=== PATIENT | female | born 1950 | race Caucasian/White ===

== ENCOUNTER → 2023-12-19 | Emergency (ER) | payer BC ==
--- OUTSIDE RECORDS SUMMARY | 2023-12-19 06:47 | XMS REPORT | Continuity of Care Document ---
Author Name Unknown Address [address] [facility] [address] [place] [address] [facility]connect Address [address] [facility] [address] [place] [address] Care Team Providers Care Resident Athletic Trainer Name Role Phone Edgar Grider Attending Clinician Unavailab le Payers Payer Name Policy Type Policy Number Effective Date Expirati on Date Source Allergies, Adverse Reactions, Alerts Allergy Name Allergy Type Status Severity Reaction(s) Onset Date Inactive Date Treating Clinician Comments Source No Known Allergie s DA Active U 01-12 00:00: 00 [facility] Encounters Start Date/Time End Date/Time Encounter Type Admission Type Attending Clinicians Care Facility Care Department Encounter ID Source 2022-07-08 10:51:00 2022-07-08 10:52:00 Outpatient R Edgar Grider [facility] [id number] [facility] 2021-07-08 11:45:00 2021-07-08 11:45:00 Outpatient Edgar Grider [facility] [id number] [facility] 2020-04-28 13:30:00 2020-04-28 13:30:00 Outpatient Edgar Grider [facility] [id number] [facility] 2019-04-23 13:42:00 2019-04-23 13:43:00 Outpatient R MarniEdgar [facility] [id number] [facility] 2018-03-07 11:10:00 2018-03-07 11:11:00 Outpatient R Edgar Grider [facility] [id number] Critical access hospital Jj Latif Results Test Description Test Time Test Comments Results Result Co mments Source MAMMO Bilat Screen DDI+RAJNI * [facility] [place] KAM : 1950 Sex: F Pt Name: CHANPatriciaWM [address] Phys: [place] [address] : 1950 Age: 72 SEX:F [phone] Exam Date: 07/08/22 Status: REG CLI Acct: [id number] Loc: [facility] Pt Unit #: [id number] Report #: [id number] CC: Edgar Grider MD MAMMOGRAPHY REPORT Order # Category/Exam [id number] MMO/MAMMO Bilat Screen DDI+RAJNI ([id number]): . Results 2 Bilateral MAMMO Bilat Screen DDI+RAJNI. CLINICAL HISTORY: Patient is 72 years old and is seen for screening. The patient has no family history of breast cancer. The patient has no personal history of cancer. VIEWS: The views performed were: bilateral craniocaudal with tomosynthesis; bilateral mediolateral oblique with tomosynthesis; and left exaggerated craniocaudal with tomosynthesis. FILMS COMPARED: The present examination has been compared to prior imaging studies performed at [facility] on 03/07/2018, 04/23/2019, 04/28/2020 and 07/08/2021. This study has been interpreted with the assistance of computer-aided detection. MAMMOGRAM FINDINGS: There are scattered fibroglandular densities. There are vascular calcifications seen in the left breast. There are no suspicious masses, suspicious calcifications, or new areas of architectural distortion. IMPRESSION: THERE IS NO MAMMOGRAPHIC EVIDENCE OF MALIGNANCY. A ROUTINE FOLLOW-UP MAMMOGRAM IN 1 YEAR IS RECOMMENDED. THE RESULTS OF THIS EXAM WERE SENT TO THE PATIENT. ACR BI-RADS Category 2 - Benign finding MAMMOGRAPHY NOTE: 1. A negative mammogram report should not delay a biopsy if a dominant of clinically suspicious mass is present. 2. Approximately 10% to 15% of breast cancers are not detected by mammography. 3. Adenosis and dense breasts may obscure an underlying neoplasm. Reported by: MISSY MULLEN MD Electonically Signed: [id number] Reported By: Missy Mullen MD Electronically Signed Date/Time: 07/08/22 1249 Technologist: GREG Dictated Date/Time: 07/08/22 Transcribed Date/Time: 07/08/22 MAMMO Bilat Screen DDI+RAJNI * [facility] DENI KAMJANINA LOWRY : 1950 Sex: F Pt Name: JANICEDENI WALKERJANINA LOWRY [address] [facility]. Phys: [place] [address] : 1950 Age: 72 SEX:F [phone] Exam Date: 07/08/22 Status: REG CLI Acct: [id number] Loc: BICMAMMO Pt Unit #: [id number] Report #: [id number] CC: Edgar Grider MD MAMMOGRAPHY REPORT Order # Category/Exam [id number] MMO/MAMMO Bilat Screen DDI+RAJNI ([id number]): . Results 2 Bilateral MAMMO Bilat Screen DDI+RAJNI. CLINICAL HISTORY: Patient is 72 years old and is seen for screening. The patient has no family history of breast cancer. The patient has no personal history of cancer. VIEWS: The views performed were: bilateral craniocaudal with tomosynthesis; bilateral mediolateral oblique with tomosynthesis; and left exaggerated craniocaudal with tomosynthesis. FILMS COMPARED: The present examination has been compared to prior imaging studies performed at [facility] on 03/07/2018, 04/23/2019, 04/28/2020 and 07/08/2021. This study has been interpreted with the assistance of computer-aided detection. MAMMOGRAM FINDINGS: There are scattered fibroglandular densities. There are vascular calcifications seen in the left breast. There are no suspicious masses, suspicious calcifications, or new areas of architectural distortion. IMPRESSION: THERE IS NO MAMMOGRAPHIC EVIDENCE OF MALIGNANCY. A ROUTINE FOLLOW-UP MAMMOGRAM IN 1 YEAR IS RECOMMENDED. THE RESULTS OF THIS EXAM WERE SENT TO THE PATIENT. ACR BI-RADS Category 2 - Benign finding MAMMOGRAPHY NOTE: 1. A negative mammogram report should not delay a biopsy if a dominant of clinically suspicious mass is present. 2. Approximately 10% to 15% of breast cancers are not detected by mammography. 3. Adenosis and dense breasts may obscure an underlying neoplasm. Reported by: MISSY MULLEN MD Electonically Signed: [id number] Reported By: Missy Mullen MD Electronically Signed Date/Time: 07/08/22 1249 Technologist: GREG Dictated Date/Time: 07/08/22 Transcribed Date/Time: 07/08/22 DEXA BONE DENSITY STUDY * [facility] : 1950 Sex: F Pt Name: WM KAM [address] Phys: [place] [address] : 1950 Age: 72 SEX:F [phone] Exam Date: 07/08/22 Status: REG CLI Acct: [id number] Loc: [facility] Pt Unit #: [id number] Report #: [id number] CC: Edgar Grider MD BONE DENSITY REPORT Order # Category/Exam [id number] BD/DEXA BONE DENSITY STUDY ([id number]): . Results DEXA bone density examination 07/08/2022 HISTORY: 72-year-old postmenopausal female for screening COMPARISON: None available FINDINGS: Lumbar spine was not assessed secondary to presence of lumbar spine hardware. Left femoral neck--bone mineral density0.460; T score -3.5 Total proximal left femur--bone mineral density 0.643; T score -2.4 Right femoral neck--bone mineral density0.452; T score -3.6 Total proximal right femur--bone mineral density 0.652; T score -2.4 IMPRESSION: Bilateral femoral neck osteoporosis. This patient has a 10 year WHO fracture risk of a major osteoporotic fracture of 22-23% and of a hip fracture of 9.1-10%. Reported By: Jabari Cole MD Electronically Signed Date/Time: 07/08/22 1257 Technologist: GREG Dictated Date/Time: 07/08/22 1256 Transcribed Date/Time: MAMMO Bilat Screen DDI+RAJNI * [facility] : 1950 Sex: F Pt Name: WM KAM [address] Phys: [place] [address] : 1950 Age: 71 SEX:F [phone] Exam Date: 07/08/21 Status: REG CLI Acct: [id number] Loc: BICM[facility]MO Pt Unit #: [id number] Report #: [id number] CC: Edgar Grider MD MAMMOGRAPHY REPORT Order # Category/Exam [id number] MMO/MAMMO Bilat Screen DDI+RAJNI ([id number]): . Results 1 Bilateral MAMMO Bilat Screen DDI+RAJNI. CLINICAL HISTORY: Patient is 71 years old and is seen for screening. The patient has no family history of breast cancer. The patient has no personal history of cancer. VIEWS: The views performed were: bilateral craniocaudal with tomosynthesis and bilateral mediolateral oblique with tomosynthesis. FILMS COMPARED: The present examination has been compared to prior imaging studies performed at [facility] on 01/05/2017, 03/07/2018, 04/23/2019 and 04/28/2020. This study has been interpreted with the assistance of computer-aided detection. MAMMOGRAM FINDINGS: There are scattered fibroglandular densities. There are no suspicious masses, suspicious calcifications, or new areas of architectural distortion. IMPRESSION: THERE IS NO MAMMOGRAPHIC EVIDENCE OF MALIGNANCY. A ROUTINE FOLLOW-UP MAMMOGRAM IN 1 YEAR IS RECOMMENDED. THE RESULTS OF THIS EXAM WERE SENT TO THE PATIENT. ACR BI-RADS Category 1 - Negative MAMMOGRAPHY NOTE: 1. A negative mammogram report should not delay a biopsy if a dominant of clinically suspicious mass is present. 2. Approximately 10% to 15% of breast cancers are not detected by mammography. 3. Adenosis and dense breasts may obscure an underlying neoplasm. Reported by: DAVID WEAVER MD Electonically Signed: [id number] Reported By: David Weaver MD Electronically Signed Date/Time: 07/08/21 1259 Technologist: MIKAELA Dictated Date/Time: 07/08/21 Transcribed Date/Time: 07/08/21 MAMMO Bilat Screen DDI+RAJNI * [facility] : 1950 Sex: F Pt Name: WM KAM [address] Phys: [place] [address] : 1950 Age: 71 SEX:F [phone] Exam Date: 07/08/21 Status: REG CLI Acct: [id number] [facility]: [facility] Pt Unit #: [id number] Report #: [id number] CC: Edgar Grider MD MAMMOGRAPHY REPORT Order # Category/Exam [id number] MMO/MAMMO Bilat Screen DDI+RAJNI ([id number]): . Results 1 Bilateral MAMMO Bilat Screen DDI+RAJNI. CLINICAL HISTORY: Patient is 71 years old and is seen for screening. The patient has no family history of breast cancer. The patient has no personal history of cancer. VIEWS: The views performed were: bilateral craniocaudal with tomosynthesis and bilateral mediolateral oblique with tomosynthesis. FILMS COMPARED: The present examination has been compared to prior imaging studies performed at [facility] on 01/05/2017, 03/07/2018, 04/23/2019 and 04/28/2020. This study has been interpreted with the assistance of computer-aided detection. MAMMOGRAM FINDINGS: There are scattered fibroglandular densities. There are no suspicious masses, suspicious calcifications, or new areas of architectural distortion. IMPRESSION: THERE IS NO MAMMOGRAPHIC EVIDENCE OF MALIGNANCY. A ROUTINE FOLLOW-UP MAMMOGRAM IN 1 YEAR IS RECOMMENDED. THE RESULTS OF THIS EXAM WERE SENT TO THE PATIENT. ACR BI-RADS Category 1 - Negative MAMMOGRAPHY NOTE: 1. A negative mammogram report should not delay a biopsy if a dominant of clinically suspicious mass is present. 2. Approximately 10% to 15% of breast cancers are not detected by mammography. 3. Adenosis and dense breasts may obscure an underlying neoplasm. Reported by: DAVID WEAVER MD Electonically Signed: [id number] Reported By: David Weaver MD Electronically Signed Date/Time: 07/08/21 1259 Technologist: MIKAELA Dictated Date/Time: 07/08/21 Transcribed Date/Time: 07/08/21 MAMMO Bilat Screen DDI+RAJNI Pt Name: NEGINWM LOWRY [address] [place] [address]. Phys: [place] [address] : 1950 Age: 70 SEX:F [phone] Exam Date: 04/28/20 Status: REG CLI Acct: [id number] Loc: [facility] Pt Unit #: [id number] Report #: [id number] CC: Edgar Grider MD MAMMOGRAPHY REPORT Order # Category/Exam [id number] MMO/MAMMO Bilat Screen DDI+RAJNI ([id number]): . Results 2 Bilateral MAMMO Bilat Screen DDI+RAJNI. CLINICAL HISTORY: Patient is 70 years old and is seen for screening. The patient has no family history of breast cancer. The patient has no personal history of cancer. VIEWS: The views performed were: bilateral craniocaudal with tomosynthesis and bilateral mediolateral oblique with tomosynthesis. FILMS COMPARED: The present examination has been compared to prior imaging studies performed at [facility] on 08/18/2015, 01/05/2017, 03/07/2018 and 04/23/2019. This study has been interpreted with the assistance of computer-aided detection. MAMMOGRAM FINDINGS: There are scattered fibroglandular densities. There are stable benign appearing calcifications seen in both breasts. There are no suspicious masses, suspicious calcifications, or new areas of architectural distortion. IMPRESSION: THERE IS NO MAMMOGRAPHIC EVIDENCE OF MALIGNANCY. A ROUTINE FOLLOW-UP MAMMOGRAM IN 1 YEAR IS RECOMMENDED. THE RESULTS OF THIS EXAM WERE SENT TO THE PATIENT. ACR BI-RADS Category 2 - Benign finding MAMMOGRAPHY NOTE: 1. A negative mammogram report should not delay a biopsy if a dominant of clinically suspicious mass is present. 2. Approximately 10% to 15% of breast cancers are not detected by mammography. 3. Adenosis and dense breasts may obscure an underlying neoplasm. Reported by: DESTINEE ROBLERO MD Electonically Signed: [id number] Reported By: Prateek Roblero MD Electronically Signed Date/Time: 04/28/20 1416 Technologist: LIBIA Dictated Date/Time: 04/28/20 Transcribed Date/Time: 04/28/20 MAMMO Bilat Screen DDI+RAJNI Pt Name: WM KAM [address] [place] [address]. Phys: [place] [address] : 1950 Age: 70 SEX:F [phone] Exam Date: 04/28/20 Status: REG CLI Acct: [id number] Loc: [facility] Pt Unit #: [id number] Report #: [id number] CC: Edgar Grider MD MAMMOGRAPHY REPORT Order # Category/Exam [id number] MMO/MAMMO Bilat Screen DDI+RAJNI ([id number]): . Results 2 Bilateral MAMMO Bilat Screen DDI+RAJNI. CLINICAL HISTORY: Patient is 70 years old and is seen for screening. The patient has no family history of breast cancer. The patient has no personal history of cancer. VIEWS: The views performed were: bilateral craniocaudal with tomosynthesis and bilateral mediolateral oblique with tomosynthesis. FILMS COMPARED: The present examination has been compared to prior imaging studies performed at [facility] on 08/18/2015, 01/05/2017, 03/07/2018 and 04/23/2019. This study has been interpreted with the assistance of computer-aided detection. MAMMOGRAM FINDINGS: There are scattered fibroglandular densities. There are stable benign appearing calcifications seen in both breasts. There are no suspicious masses, suspicious calcifications, or new areas of architectural distortion. IMPRESSION: THERE IS NO MAMMOGRAPHIC EVIDENCE OF MALIGNANCY. A ROUTINE FOLLOW-UP MAMMOGRAM IN 1 YEAR IS RECOMMENDED. THE RESULTS OF THIS EXAM WERE SENT TO THE PATIENT. ACR BI-RADS Category 2 - Benign finding MAMMOGRAPHY NOTE: 1. A negative mammogram report should not delay a biopsy if a dominant of clinically suspicious mass is present. 2. Approximately 10% to 15% of breast cancers are not detected by mammography. 3. Adenosis and dense breasts may obscure an underlying neoplasm. Reported by: DESTINEE ROBLERO MD Electonically Signed: [id number] Reported By: Prateek Roblero MD Electronically Signed Date/Time: 04/28/20 1416 Technologist: LIBIA Dictated Date/Time: 04/28/20 Transcribed Date/Time: 04/28/20 MAMMO Bilat Screen DDI+RAJ[facility] Pt Name: WM KAM Phys: Edgar Grider MD , : 1950 Age: 69 SEX:F Exam Date: 04/23/19 Status: REG CLI Acct: [id number] Loc: [facility] Pt Unit #: [id number] Report #: [id number] CC: Edgar Grider MD MAMMOGRAPHY REPORT Order # Category/Exam [id number] MMO/MAMMO Bilat Screen DDI+RAJNI ([id number]): . Results Bilateral MAMMO Bilat Screen DDI+RAJNI. CLINICAL HISTORY: Patient is 69 years old and is seen for screening. The patient has no family history of breast cancer. The patient has no personal history of cancer. VIEWS: The views performed were: bilateral craniocaudal with tomosynthesis and bilateral mediolateral oblique with tomosynthesis. FILMS COMPARED: The present examination has been compared to prior imaging studies performed at [facility] on 08/01/2014, 08/18/2015, 01/05/2017 and 03/07/2018. MAMMOGRAM FINDINGS: There are scattered fibroglandular densities. There are no suspicious masses, suspicious calcifications, or new areas of architectural distortion. IMPRESSION: THERE IS NO MAMMOGRAPHIC EVIDENCE OF MALIGNANCY. A ROUTINE FOLLOW-UP MAMMOGRAM IN 1 YEAR IS RECOMMENDED. THE RESULTS OF THIS EXAM WERE SENT TO THE PATIENT. ACR BI-RADS Category 1 - Negative MAMMOGRAPHY NOTE: 1. A negative mammogram report should not delay a biopsy if a dominant of clinically suspicious mass is present. 2. Approximately 10% to 15% of breast cancers are not detected by mammography. 3. Adenosis and dense breasts may obscure an underlying neoplasm. Reported By: Han Valverde MD Electronically Signed Date/Time: 04/23/19 1512 Technologist: [email or web address] Dictated Date/Time: 04/23/19 Transcribed Date/Time: 04/23/19 MAMMO Bilat Screen DDI+RAJ[facility] Pt Name: WM KAM [address] [facility]. Phys: [place] [address] : 1950 Age: 69 SEX:F [phone] Exam Date: 04/23/19 Status: DEP CLI Acct: [id number] Loc: [facility] Pt Unit #: [id number] Report #: [id number] CC: Edgar Grider MD MAMMOGRAPHY REPORT Order # Category/Exam [id number] MMO/MAMMO Bilat Screen DDI+RAJNI ([id number]): . Results 1 Bilateral MAMMO Bilat Screen DDI+RAJNI. CLINICAL HISTORY: Patient is 69 years old and is seen for screening. The patient has no family history of breast cancer. The patient has no personal history of cancer. VIEWS: The views performed were: bilateral craniocaudal with tomosynthesis and bilateral mediolateral oblique with tomosynthesis. FILMS COMPARED: The present examination has been compared to prior imaging studies performed at [facility] on 08/01/2014, 08/18/2015, 01/05/2017 and 03/07/2018. MAMMOGRAM FINDINGS: There are scattered fibroglandular densities. There are no suspicious masses, suspicious calcifications, or new areas of architectural distortion. IMPRESSION: THERE IS NO MAMMOGRAPHIC EVIDENCE OF MALIGNANCY. A ROUTINE FOLLOW-UP MAMMOGRAM IN 1 YEAR IS RECOMMENDED. THE RESULTS OF THIS EXAM WERE SENT TO THE PATIENT. ACR BI-RADS Category 1 - Negative MAMMOGRAPHY NOTE: 1. A negative mammogram report should not delay a biopsy if a dominant of clinically suspicious mass is present. 2. Approximately 10% to 15% of breast cancers are not detected by mammography. 3. Adenosis and dense breasts may obscure an underlying neoplasm. Reported by: HAN VALVERDE MD Electonically Signed: [id number] Reported By: Han Valverde MD Electronically Signed Date/Time: 04/23/19 1512 Technologist: NASIR Dictated Date/Time: 04/23/19 Transcribed Date/Time: 04/23/19
--- NOTE | 2023-12-19 07:13 | ER ---
Nurse's Notes [facility] Name: Destiny Jay Age: 73 yrs Sex: Female : 1950 Arrival Date: 12/19/2023 Time: 06:44 Bed 5 Private MD: Diagnosis: Epistaxis Presentation: 12/19 06:55 Chief complaint: Patient states: i woke up with a nose bleed about one hour ago. it has lg3 slowed down but I've never had one before. Coronavirus screen: Client denies travel out of the [place] in the last 14 days. At this time, the client does not indicate any symptoms associated with coronavirus-19. Ebola Screen: No symptoms or risks identified at this time. Initial Sepsis Screen: Does the patient meet any 2 criteria? No. Patient's initial sepsis screen is negative. Does the patient have a suspected source of infection? No. Patient's initial sepsis screen is negative. Risk Assessment: Do you want to hurt yourself or someone else? Patient reports no desire to harm self or others. Onset of symptoms was December 19, 2023. 06:55 Method Of Arrival: Ambulatory lg3 06:55 Acuity: JOHN 4 lg3 Triage Assessment: 06:57 General: Appears in no apparent distress. comfortable, Behavior is calm, cooperative. lg3 Pain: Denies pain. EENT: Nares with bleeding noted on right. Neuro: No deficits noted. Goddard Agitation-Sedation Scale (RASS): 0 - Alert and Calm Level of Consciousness is awake, alert, obeys commands, Oriented to person, place, time, situation. Cardiovascular: No deficits noted. Denies chest pain, shortness of breath, Capillary refill < 3 seconds Clubbing of nail beds is absent JVD is absent Patient's skin is warm and dry. Respiratory: No deficits noted. Airway is patent Respiratory effort is even, unlabored, Respiratory pattern is regular, symmetrical, Breath sounds are clear bilaterally. GI: No deficits noted. No signs and/or symptoms were reported involving the gastrointestinal system. Abdomen is flat, non-distended. : No deficits noted. No signs and/or symptoms were reported regarding the genitourinary system. Derm: No deficits noted. No signs and/or symptoms reported regarding the dermatologic system. Skin is intact, is healthy with good turgor, Skin is dry, Skin is normal, Skin temperature is warm. Musculoskeletal: No deficits noted. No signs and/or symptoms reported regarding the musculoskeletal system. Circulation, motion, and sensation intact. Range of motion: intact in all extremities. Historical: - Allergies: 06:57 No Known Allergies; lg3 - Home Meds: 06:57 Colchicine Oral [Active]; lg3 - PMHx: 06:57 None; lg3 - PSHx: 06:57 Cholecystectomy; back; lg3 - Immunization history:: Adult Immunizations up to date, Client reports receiving the 2nd dose of the Covid vaccine, Flu vaccine is not up to date. - Social history:: Smoking status: Patient denies any tobacco usage or history of. Patient uses alcohol, only on a social basis. Vital Signs: 06:55 BP 159 / 80; Pulse 76; Resp 17 S; Temp 98.1(O); Pulse Ox 100% on R/A; Weight 58.97 kg lg3 (R); Height 5 ft. 5 in. (R); Pain 0/10; 06:55 Body Mass Index 21.63 (58.97 kg, 165.1 cm) lg3 06:55 Pain Scale: Adult lg3 ED Course: 06:47 Patient arrived in ED. jj6 06:57 Triage completed. lg3 06:57 Ryan Eason MD is Attending Physician. rt 06:57 Arm band placed on right wrist. lg3 07:06 Neris Dennis, RN is Primary Nurse. iw Administered Medications: No medications were administered Outcome: 07:12 Discharge ordered by . rt 07:24 Patient left the ED. iw Signatures: Neris Dennis RN RN iw Able, Lacie, RN RN 3 Joanna Boone j6 Ryan Esaon MD MD rt
--- NOTE | 2023-12-19 07:13 | EDPHYS ---
Physician Documentation [facility] Name: Destiny Jay Age: 73 yrs Sex: Female : 1950 Arrival Date: 12/19/2023 Time: 06:44 Bed 5 Private MD: ED Physician Ryan Eason HPI: 12/19 07:15 This 73 yrs old Female presents to ER via Ambulatory with complaints of Nose Bleed. rt 07:15 Patient presents to the ED with epistaxis from the right nare. Patient woke up this rt way. She reports a lot of bleeding initially, she did mention tenderness. She states that the bleeding is stopped currently. Denies facial trauma, anticoagulant use. Denies other acute complaints at this time, symptoms are mild in severity, no other aggravating or elevating factors.. Historical: - Allergies: 06:57 No Known Allergies; lg3 - Home Meds: 06:57 Colchicine Oral [Active]; lg3 - PMHx: 06:57 None; lg3 - PSHx: 06:57 Cholecystectomy; back; lg3 - Immunization history:: Adult Immunizations up to date, Client reports receiving the 2nd dose of the Covid vaccine, Flu vaccine is not up to date. - Social history:: Smoking status: Patient denies any tobacco usage or history of. Patient uses alcohol, only on a social basis. ROS: 07:15 Constitutional: Negative for fever, chills, and weight loss, Cardiovascular: Negative rt for chest pain, palpitations, and edema, Respiratory: Negative for shortness of breath, cough, wheezing, and pleuritic chest pain, Abdomen/GI: Negative for abdominal pain, nausea, vomiting, diarrhea, and constipation, 07:15 ENT: Positive for nose bleed, Negative for injury or acute deformity, Exam: 07:15 Constitutional: This is a well developed, well nourished patient who is awake, alert, rt and in no acute distress. Head/Face: Normocephalic, atraumatic. Skin: Warm, dry with normal turgor. Normal color with no rashes, no lesions, and no evidence of cellulitis. MS/ Extremity: Pulses equal, no cyanosis. Neurovascular intact. Full, normal range of motion. Neuro: Awake and alert, GCS 15, oriented to person, place, time, and situation. Cranial nerves II-XII grossly intact. Motor strength 5/5 in all extremities. Sensory grossly intact. Cerebellar exam normal. Normal gait. Psych: Awake, alert, with orientation to person, place and time. Behavior, mood, and affect are within normal limits. 07:15 ENT: Small mount of dried blood in the right nare, left nare is clear, no active bleeding, OP benign. Vital Signs: 06:55 BP 159 / 80; Pulse 76; Resp 17 S; Temp 98.1(O); Pulse Ox 100% on R/A; Weight 58.97 kg lg3 (R); Height 5 ft. 5 in. (R); Pain 0/10; 06:55 Body Mass Index 21.63 (58.97 kg, 165.1 cm) lg3 06:55 Pain Scale: Adult lg3 MDM: 07:05 Patient medically screened. rt 07:15 Differential diagnosis: Epistaxis, rhinitis. Data reviewed: vital signs, nurses notes. rt Test considered but Not performed: Labs: Stable vital signs, only apparent minor bleeding, no signs or symptoms concerning for anemia, labs not indicated. Counseling: I had a detailed discussion with the patient and/or guardian regarding the historical points, exam findings, and any diagnostic results supporting the discharge/admit diagnosis, the need for outpatient follow up, to return to the emergency department if symptoms worsen or persist or if there are any questions or concerns that arise at home. Administered Medications: No medications were administered Disposition Summary: 12/19/23 07:12 Discharge Ordered Notes: Location: Home rt Problem: new rt Symptoms: have improved rt Condition: Stable rt Diagnosis - Epistaxis rt Followup: rt - With: Private Physician - When: 2 - 3 days - Reason: Discharge Instructions: - Discharge Summary Sheet rt - Nosebleed, Adult rt Forms: - Medication Reconciliation Form rt - Thank You Letter rt - Antibiotic Education rt - Prescription Opioid Use rt - Patient Portal Instructions rt - Leadership Thank You Letter rt Signatures: Kimberly Major RN RN lg3 Ryan Eason MD MD rt
[2023-12-19 07:35] VITALS: BP 159/80; TEMP 98.1; O2SAT 100
== END ==
LOC: ER 06:44
DX: R04.0 Epistaxis (principal)
CPT/HCPCS: 99281